=== PATIENT | male | born 1975 | race African-American/Black ===

== ENCOUNTER 2017-09-06 15:57 | Emergency (ER) | payer OTHER ==
[2017-09-06] MEDS: KETOROLAC TROMETHAMINE 10 MG TAB PO (17:59)
== END 2017-09-06 19:57 | disposition home or self-care (01) ==
LOC: M ED 15:57
DX: S29.9XXA Unspecified injury of thorax, initial encounter (principal); S49.91XA Unspecified injury of right shoulder and upper arm, initial encounter; M47.812 Spondylosis without myelopathy or radiculopathy, cervical region; W00.9XXA Unspecified fall due to ice and snow, initial encounter; Y92.512 Supermarket, store or market as the place of occurrence of the external cause; Z87.891 Personal history of nicotine dependence
CPT/HCPCS: 72040

== ENCOUNTER 2017-09-24 17:18 | Emergency (ER) | payer OTHER | END 2017-09-24 19:33 | disposition home or self-care (01) | LOC: M ED 17:18 | DX: F07.81 Postconcussional syndrome (principal); W19.XXXA Unspecified fall, initial encounter; Y92.89 Other specified places as the place of occurrence of the external cause | CPT/HCPCS: 70450 ==

== ENCOUNTER 2018-01-16 18:14 | Emergency (ER) | payer OTHER ==
[2018-01-16] MEDS: NS 1,000 ML IV (19:15)
[2018-01-16] MEDS: METOCLOPRAMIDE INJ 10MG/2ML VIAL (J2765) IV (19:31)
[2018-01-16] MEDS: diphenhydrAMINE INJ 50MG/ML VIAL (J1200) IV (19:31)
[2018-01-16 19:37] LABS: ALBUMIN 3.6 GM/DL (3.2-5.2); ALBUMIN/GLOBULIN RATIO 0.82 (1.00-1.93); ALKALINE PHOSPHATASE 75 U/L (45-117); ALT/SGPT 41 U/L (12-78); ANION GAP 9 MEQ/L (8-16); AST/SGOT 31 U/L (7-37); BILIRUBIN,DIRECT < 0.1 MG/DL (0.0-0.2); BILIRUBIN,TOTAL 0.5 MG/DL (0.2-1.0); BLOOD UREA NITROGEN 15 MG/DL (7-18); CALCIUM LEVEL 8.4 MG/DL (8.5-10.1); CARBON DIOXIDE LEVEL 24 MEQ/L (21-32); CHLORIDE LEVEL 106 MEQ/L (98-107); CREATININE FOR GFR 1.57 MG/DL (0.70-1.30); ETHYL ALCOHOL (ETHANOL) < 0.003 % (0.000-0.010); GLOMERULAR FILTRATION RATE > 60.0 (>60); GLUCOSE, FASTING 128 MG/DL (70-100); POTASSIUM SERUM 3.3 MEQ/L (3.5-5.1); SALICYLATE LEVEL < 1.7 MG/DL (5.0-30.0); SODIUM LEVEL 139 MEQ/L (136-145)
[2018-01-16 19:41] LABS: BASO % 0.4 % (0.0-1.0); EOS # 0.2 10^3/uL (0.0-0.50); EOS % 2.5 % (0.0-3.0); HEMATOCRIT 47.1 % (42.0-52.0); HEMOGLOBIN 16.5 g/dl (13.5-17.5); IMMATURE GRANULOCYTE % 0.4 % (0-3.0); LYMPH # 4.5 10^3/uL (1.5-4.5); LYMPH % 52.9 % (24.0-44.0); MEAN CORPUSCULAR VOLUME 82.9 fl (80.0-96.0); MONO # 0.6 10^3/uL (0.0-0.8); MONO % 6.9 % (0.0-5.0); NEUTROPHILS # 3.2 10^3/uL (1.8-7.7); NEUTROPHILS % 36.9 % (36.0-66.0); PLATELET COUNT, AUTOMATED 291 10^3/uL (150-450); RED BLOOD COUNT 5.68 10^6/uL (4.30-6.10); WHITE BLOOD COUNT 8.6 10^3/uL (4.0-10.0)
[2018-01-16 19:50] LABS: ACETAMINOPHEN LEVEL < 2.0 UG/ML (10.0-30.0)
[2018-01-16] MEDS: KETOROLAC 30 MG/ML VIAL (J1885) IV (19:54)
== END 2018-01-16 21:30 | disposition home or self-care (01) ==
LOC: M ED 18:14
DX: R51 Headache (principal); R11.10 Vomiting, unspecified; Z87.891 Personal history of nicotine dependence
CPT/HCPCS: J1200

== ENCOUNTER → 2019-03-04 | Outpatient (CLI) | payer OTHER ==
[~2019-03-04] MED LIST: CYCL10TA PO; GERITAB9 PO; [UNRECOGNIZED DRUG - CODE] PO
--- NOTE | 2019-03-04 08:13 | REP ---
Urinary tract sonography with renal artery Doppler assessment: History: Hypertension and elevated creatinine rule out renal artery stenosis. Findings: Scanning at the level of the urinary bladder shows no abnormality. Renal cortical echogenicity pattern is normal bilaterally and contours are smooth. There is no evidence of hydronephrosis, cyst, mass, or calculus in either kidney. The right kidney measures 11.4 x 6.2 x 6.3 cm. Left renal dimensions are 11.9 x 6.1 x 6.8 cm. Impression: Normal urinary tract sonography. No morphologic abnormality noted. Renal artery Doppler assessment findings: Peak systolic flow velocity in the abdominal aorta at the level of the main renal arteries is normal at at 126 cm/sec. The main renal arteries were obscured on Doppler ultrasound assessment to the level of each renal hilus. At the renal hilar level, peak systolic flow velocity in the right main renal artery is 65 and that in the left 51 cm/sec. These values are normal. Resistive indices and acceleration times are measured in the intralobar arteries of the upper, mid, and lower pole renal arteries bilaterally. These values are normal. Impression: Limited visualization of the main renal arteries. No indirect evidence to suggest renal artery stenosis. Electronically Signed by Carmine Davis MD 03/04/2019 08:04 A
== END ==
LOC: M RAD 06:29
PROVIDERS: ATTEND Physician Assistant
DX: I10 Essential (primary) hypertension (principal)